=== PATIENT | female | born 1950 | race Two or more races ===

== ENCOUNTER 2018-06-17 11:39 | Inpatient (IN) | payer OTHER ==
[~2018-06-17] VITALS: Ht 160 cm; Wt 62.1 kg
[2018-06-17] MEDS ORDERED: SYNTHROID175 MCG (11:49)
[2018-06-17] MEDS ORDERED: NORVASC2.5 M1 (11:49)
[2018-06-17] MEDS ORDERED: TOPROL XL50 M1 PO (11:49)
--- NOTE | 2018-06-17 11:51 | NUR ---
SE RECIBE PTE ALERTA Y ORIENTADA X3, PTE REFIERE VENIR POR TOS Y FIEBRE. PTE CON REFERIDO MEDICO, SE LE ENTREGAN DOCUMENTOS A .
--- NOTE | 2018-06-17 13:09 | NUR ---
EVLAUA PACIENTE Y ORDENA TX MEDICO DEL CUAL SE ORIENTA PACIENTE Y FAMILIAR,AMBOS REFIEREN ENTENDER. [employer] MUESTRAS DE LABORATORIOS Y ADMINISTRA MEDICAMENTOS BILLY ORDEN MEDICA SIGUIENDO MEDIDAS ASEPTICAS. SE NOTIFICA ESTUDIO DE RX A PERSONAL DE TURNO.
== END 2018-06-23 14:26 | disposition home or self-care (01) | DRG 193 ==
LOC: ER 11:39 → MEDJ 21:37
PROVIDERS: ADMIT Internal Medicine
PROC: 3E0F7GC Introduction of Other Therapeutic Substance into Respiratory Tract, Via Natural or Artificial Opening (ICD-10-PCS; 2018-06-17)
PROC: 8E0ZXY6 Isolation (ICD-10-PCS; 2018-06-17)
PROC: BW24ZZZ Computerized Tomography (CT Scan) of Chest and Abdomen (ICD-10-PCS; principal; 2018-06-18)
DX: J10.08 Influenza due to other identified influenza virus with other specified pneumonia (principal); A41.89 Other specified sepsis; E03.8 Other specified hypothyroidism; K21.9 Gastro-esophageal reflux disease without esophagitis

== ENCOUNTER 2022-12-09 09:42 | Emergency (ER) | payer OTHER ==
[~2022-12-09] VITALS: Ht 160 cm; Wt 65.8 kg
[~2022-12-09 09:42] MED LIST: NORVASC2.5 M1; SYNTHROID175 MCG; TOPROL XL50 M1 PO
== END 2022-12-09 14:21 | disposition home or self-care (01) ==
LOC: ER 09:42
DX: M50.30 Other cervical disc degeneration, unspecified cervical region (principal); Z88.0 Allergy status to penicillin; I10 Essential (primary) hypertension